=== PATIENT | male | born 1965 | race Caucasian/White ===

== ENCOUNTER 2019-07-06 14:24 | Inpatient (IN) | payer MEDICARE, MEDICAID ==
[~2019-07-06] VITALS: Ht 182.9 cm; Wt 132.7 kg
[2019-07-06] MEDS ORDERED: SODIUM CHLORIDE 0.9% 1,000 ML IV ONE ×2 (14:47)
[2019-07-06 15:34] LABS: Basophils # (auto) 0 10 ^3/uL (0-0.2); Basophils % (auto) 0.5 % (0.0-2.0); Eosinophils # (auto) 0.2 10 ^3/uL (0-0.8); Eosinophils % (auto) 3.9 % (0.0-7.0); Hematocrit 45.1 % (41.0-53.0); Hemoglobin 14.9 g/dL (13.5-17.5); Lymphocytes # (auto) 0.8 10 ^3/uL (0.4-5.4); Lymphocytes % (auto) 17.2 % (10.0-50.0); Mean Corpuscular Hemoglobin 30.9 pg (28.0-32.0); Mean Corpuscular Hgb Conc. 33.1 g/dL (32.0-36.0); Mean Corpuscular Volume 93.3 fL (80.0-100.0); Monocytes # (auto) 0.4 10 ^3/uL (0-1.3); Monocytes % (auto) 9.8 % (0.0-12.0); Neutrophils # (auto) 3.1 10 ^3/uL (1.6-8.6); Neutrophils % (auto) 68.6 % (37.0-80.0); Nucleated Red Blood Cells % 0.2 %; Platelet Count (auto) 161 10^3/uL (140-450); Red Blood Cells 4.84 10^6/uL (4.5-5.90); Red Cell Distribution Width 15.3 % (11.8-14.3); White Blood Cell 4.6 10^3/uL (4.4-10.8)
[2019-07-06 15:48] LABS: INR 1.01 (0.9-1.15); Partial Thromboplastin Time 27.5 sec (23.64-32.05)
[2019-07-06 15:53] LABS: Albumin 3.8 g/dL (3.4-5.0); Anion Gap 6 (5-15); Blood Urea Nitrogen 10 mg/dL (7-18); Carbon Dioxide 27 mmol/L (21-32); Chloride 106 mmol/L (98-107); Glucose 57 mg/dL (74-106); Potassium 3.7 mmol/L (3.5-5.1); Sodium 139 mmol/L (136-145)
[2019-07-06 16:00] LABS: Alanine Aminotransferase 30 U/L (16-61); Alkaline Phosphatase 80 U/L (45-117); Aspartate Aminotransferase 18 U/L (15-37); BUN/Creatinine Ratio 13.5; Bilirubin, Total 0.9 mg/dL (0.2-1.0); GFR African American 142 mL/min; GFR Non-African American 118 mL/min; Total Protein 8.2 g/dL (6.4-8.2)
[2019-07-06] MEDS ORDERED: levoFLOXacin 500MG 100 ML IV ONE (19:45)
[2019-07-06] MEDS ORDERED: TEMAZEPAM 15 MG CAP PO PRN (19:45)
[2019-07-06] MEDS ORDERED: ALBUTEROL SULF 2.5 MG/0.5ML(0.5%) NEB SOLN NEB PRN (19:45)
[2019-07-06] MEDS ORDERED: ACETAMINOPHEN 500 MG TAB PO PRN (19:45)
[2019-07-06] MEDS ORDERED: traMADol HCL 50 MG TAB PO PRN (19:45)
[2019-07-06] MEDS ORDERED: VANCOMYCIN 1GM/250ML 250 ML IV ONE (19:45)
[2019-07-06] MEDS ORDERED: VANCOMYCIN PER PHARMACY 0 MG IV SCH (19:45)
[2019-07-06] MEDS ORDERED: DEXTROSE (50%) 50ML SYRG IV PRN (19:45)
[2019-07-06 19:50] VITALS: BP 151/81
[2019-07-06 21:00] VITALS: BP 155/96
[2019-07-06] MEDS: InsuLIN REG 1unit/0.01ml Soln (100units/ml) SC SCH (22:00)
[2019-07-06] MEDS: FAMOTIDINE 20 MG TAB PO SCH (22:03)
[2019-07-06] MEDS: ACCU-CHEK COMFORT CURVE STRIP VI SCH (22:03)
[2019-07-06] MEDS: MORPHINE SULF INJ 2 MG/ML SYRINGE 1ML IV PRN (22:04)
[2019-07-06] MEDS ORDERED: METF-370 PO (23:31)
[2019-07-06] MEDS ORDERED: GLIP5TAB12 PO (23:31)
[2019-07-06] MEDS ORDERED: OME20GT PO (23:31)
[2019-07-06] MEDS ORDERED: SEMA2INJ SC (23:31)
[2019-07-06] MEDS ORDERED: INSLANTI SC (23:31)
[2019-07-06] MEDS: SODIUM CHLORIDE 0.9% 1,000 ML IV SCH (23:34)
[2019-07-07] MEDS: IPRATROPIUM BROM 0.5 MG/2.5ML INH SOL NEB SCH ×5 (00:20→18:55)
[2019-07-07] MEDS: ALBUTEROL SULF 2.5 MG/0.5ML(0.5%) NEB SOLN NEB SCH ×5 (00:20→18:55)
[2019-07-07] MEDS: PROMETHAZINE HCL 25 MG/ML 1ML IV PRN ×2 (01:07→21:47)
[2019-07-07] MEDS: VANCOMYCIN 1GM/250ML 250 ML IV SCH ×3 (04:42→20:07)
[2019-07-07 05:00] VITALS: BP 142/85
[2019-07-07] MEDS: SODIUM CHLORIDE 0.9% 1,000 ML IV SCH ×2 (05:34→15:34)
[2019-07-07] MEDS: InsuLIN REG 1unit/0.01ml Soln (100units/ml) SC SCH ×4 (07:00→21:59)
[2019-07-07] MEDS: ACCU-CHEK COMFORT CURVE STRIP VI SCH ×4 (07:01→21:55)
[2019-07-07 09:00] VITALS: BP 162/67
[2019-07-07] MEDS ORDERED: levoFLOXacin 500MG 100 ML IV SCH (10:00)
[2019-07-07] MEDS: FAMOTIDINE 20 MG TAB PO SCH ×2 (11:41→21:54)
[2019-07-07 13:00] VITALS: BP 133/82
[2019-07-07] MEDS ORDERED: CEFTRIAXONE SODIUM 2 GM in D5W 5% 50 ML IV ONE (14:45)
[2019-07-07 17:00] VITALS: BP 134/85
[2019-07-07] MEDS: MORPHINE SULF INJ 2 MG/ML SYRINGE 1ML IV PRN (21:49)
[2019-07-07 22:00] VITALS: BP 142/75
[2019-07-08] MEDS: ALBUTEROL SULF 2.5 MG/0.5ML(0.5%) NEB SOLN NEB SCH ×4 (00:42→18:40)
[2019-07-08] MEDS: IPRATROPIUM BROM 0.5 MG/2.5ML INH SOL NEB SCH ×4 (00:42→18:40)
[2019-07-08] MEDS: VANCOMYCIN 1GM/250ML 250 ML IV SCH ×3 (03:52→19:34)
[2019-07-08] MEDS: SODIUM CHLORIDE 0.9% 1,000 ML IV SCH ×3 (04:36→19:35)
[2019-07-08 04:57] VITALS: BP 162/73
[2019-07-08] MEDS: InsuLIN REG 1unit/0.01ml Soln (100units/ml) SC SCH ×4 (06:25→21:26)
[2019-07-08] MEDS: ACCU-CHEK COMFORT CURVE STRIP VI SCH ×4 (06:27→21:28)
[2019-07-08] MEDS: CEFTRIAXONE SODIUM 2 GM in D5W 5% 50 ML IV SCH ×2 (08:25→21:16)
[2019-07-08] MEDS: FAMOTIDINE 20 MG TAB PO SCH (08:26)
[2019-07-08] MEDS: MORPHINE SULF INJ 2 MG/ML SYRINGE 1ML IV PRN ×2 (08:27→21:37)
[2019-07-08] MEDS: PROMETHAZINE HCL 25 MG/ML 1ML IV PRN ×2 (08:27→21:15)
[2019-07-08 08:34] VITALS: BP 165/97
[2019-07-08 12:41] VITALS: BP 144/74
[2019-07-08] MEDS: GABAPENTIN 300 MG CAP PO SCH ×2 (14:21→19:41)
[2019-07-08 17:00] VITALS: BP 155/84
[2019-07-08] MEDS: PANTOPRAZOLE 40 MG/10 ML VIAL INJ IV SCH (19:35)
[2019-07-08] MEDS: SERTRALINE HCL 50 MG TAB PO SCH (19:41)
[2019-07-08] MEDS: buPROPion HCL 100 MG TAB PO SCH (19:41)
[2019-07-08] MEDS: ATORVASTATIN 20 MG TAB PO SCH (19:41)
[2019-07-08] MEDS: INSULIN LANTUS (GLARGINE) 1 /0.01ml (100units/ml) SC SCH (21:27)
[2019-07-08 21:40] VITALS: BP 147/68
[2019-07-09] MEDS: IPRATROPIUM BROM 0.5 MG/2.5ML INH SOL NEB SCH ×4 (00:13→18:28)
[2019-07-09] MEDS: ALBUTEROL SULF 2.5 MG/0.5ML(0.5%) NEB SOLN NEB SCH ×4 (00:13→18:28)
[2019-07-09] MEDS: VANCOMYCIN 1GM/250ML 250 ML IV SCH ×3 (04:30→20:03)
[2019-07-09 04:48] VITALS: BP 153/86
[2019-07-09] MEDS: GABAPENTIN 300 MG CAP PO SCH ×3 (06:49→20:24)
[2019-07-09] MEDS: ACCU-CHEK COMFORT CURVE STRIP VI SCH ×4 (06:50→21:44)
[2019-07-09] MEDS: InsuLIN REG 1unit/0.01ml Soln (100units/ml) SC SCH ×4 (06:51→21:47)
[2019-07-09] MEDS: SODIUM CHLORIDE 0.9% 1,000 ML IV SCH ×3 (06:54→23:42)
[2019-07-09 08:49] VITALS: BP 162/88
[2019-07-09] MEDS: PANTOPRAZOLE 40 MG/10 ML VIAL INJ IV SCH ×2 (09:42→20:25)
[2019-07-09] MEDS: LISINOPRIL 20 MG TAB PO SCH (09:43)
[2019-07-09] MEDS: HCTZ 25 MG TAB PO SCH (09:43)
[2019-07-09 12:48] VITALS: BP 160/86
[2019-07-09] MEDS ORDERED: cloNIDine HCL 0.1 MG TAB PO PRN (13:00)
[2019-07-09 16:44] VITALS: BP 166/94
[2019-07-09 20:04] VITALS: BP 145/82
[2019-07-09] MEDS: buPROPion HCL 100 MG TAB PO SCH (20:24)
[2019-07-09] MEDS: SERTRALINE HCL 50 MG TAB PO SCH (20:24)
[2019-07-09] MEDS: ATORVASTATIN 20 MG TAB PO SCH (20:25)
[2019-07-09] MEDS: MORPHINE SULF INJ 2 MG/ML SYRINGE 1ML IV PRN (20:32)
[2019-07-09] MEDS: PROMETHAZINE HCL 25 MG/ML 1ML IV PRN (21:22)
[2019-07-09] MEDS: CEFTRIAXONE SODIUM 2 GM in D5W 5% 50 ML IV SCH (21:24)
[2019-07-09] MEDS: INSULIN LANTUS (GLARGINE) 1 /0.01ml (100units/ml) SC SCH (21:46)
[2019-07-09 22:00] VITALS: BP_SYST 126; BP_SYST 142; BP_DIAS 73; BP_DIAS 75
[2019-07-10] MEDS: IPRATROPIUM BROM 0.5 MG/2.5ML INH SOL NEB SCH ×5 (00:30→19:12)
[2019-07-10] MEDS: ALBUTEROL SULF 2.5 MG/0.5ML(0.5%) NEB SOLN NEB SCH ×4 (00:30→19:12)
[2019-07-10] MEDS: VANCOMYCIN 1GM/250ML 250 ML IV SCH ×3 (04:00→19:45)
[2019-07-10 05:00] VITALS: BP 137/77
[2019-07-10] MEDS: GABAPENTIN 300 MG CAP PO SCH ×3 (06:00→21:33)
[2019-07-10] MEDS: InsuLIN REG 1unit/0.01ml Soln (100units/ml) SC SCH ×4 (06:31→21:55)
[2019-07-10] MEDS: ACCU-CHEK COMFORT CURVE STRIP VI SCH ×4 (06:32→21:53)
[2019-07-10 09:04] VITALS: BP 158/80
[2019-07-10] MEDS: LISINOPRIL 20 MG TAB PO SCH (09:06)
[2019-07-10] MEDS: PANTOPRAZOLE 40 MG/10 ML VIAL INJ IV SCH ×2 (09:07→21:36)
[2019-07-10] MEDS: HCTZ 25 MG TAB PO SCH (09:07)
[2019-07-10] MEDS: MORPHINE SULF INJ 2 MG/ML SYRINGE 1ML IV PRN ×2 (09:11→21:37)
[2019-07-10 13:00] VITALS: BP 155/88
[2019-07-10] MEDS: SODIUM CHLORIDE 0.9% 1,000 ML IV SCH ×2 (14:13→23:31)
[2019-07-10 16:29] VITALS: BP 147/71
[2019-07-10] MEDS: ATORVASTATIN 20 MG TAB PO SCH (21:33)
[2019-07-10] MEDS: SERTRALINE HCL 50 MG TAB PO SCH (21:34)
[2019-07-10] MEDS: buPROPion HCL 100 MG TAB PO SCH (21:35)
[2019-07-10] MEDS: CEFTRIAXONE SODIUM 2 GM in D5W 5% 50 ML IV SCH (21:38)
[2019-07-10] MEDS: INSULIN LANTUS (GLARGINE) 1 /0.01ml (100units/ml) SC SCH (21:56)
[2019-07-10 22:00] VITALS: BP 139/73
[2019-07-10] MEDS: DAKINS QUARTER STR 0.125% (NaHypochlorite) 473 ML TOPICAL SOL TOP SCH (22:52)
[2019-07-11] VITALS (7 sets, daily range): BP systolic 124–150; BP diastolic 64–83
[2019-07-11] MEDS: IPRATROPIUM BROM 0.5 MG/2.5ML INH SOL NEB SCH ×4 (00:41→18:44)
[2019-07-11] MEDS: ALBUTEROL SULF 2.5 MG/0.5ML(0.5%) NEB SOLN NEB SCH ×4 (00:41→18:44)
[2019-07-11] MEDS: VANCOMYCIN 1GM/250ML 250 ML IV SCH ×3 (03:55→20:19)
[2019-07-11] MEDS: ACCU-CHEK COMFORT CURVE STRIP VI SCH ×4 (06:28→21:24)
[2019-07-11] MEDS: GABAPENTIN 300 MG CAP PO SCH ×3 (06:28→21:22)
[2019-07-11] MEDS: InsuLIN REG 1unit/0.01ml Soln (100units/ml) SC SCH ×4 (06:39→21:31)
[2019-07-11] MEDS: PANTOPRAZOLE 40 MG/10 ML VIAL INJ IV SCH ×2 (10:20→21:40)
[2019-07-11] MEDS: HCTZ 25 MG TAB PO SCH (10:20)
[2019-07-11] MEDS: DAKINS QUARTER STR 0.125% (NaHypochlorite) 473 ML TOPICAL SOL TOP SCH ×2 (10:21→21:32)
[2019-07-11] MEDS: LISINOPRIL 20 MG TAB PO SCH (10:21)
[2019-07-11] MEDS: SODIUM CHLORIDE 0.9% 1,000 ML IV SCH ×2 (10:21→19:34)
[2019-07-11] MEDS: ATORVASTATIN 20 MG TAB PO SCH (21:22)
[2019-07-11] MEDS: buPROPion HCL 100 MG TAB PO SCH (21:23)
[2019-07-11] MEDS: SERTRALINE HCL 50 MG TAB PO SCH (21:30)
[2019-07-11] MEDS: CEFTRIAXONE SODIUM 2 GM in D5W 5% 50 ML IV SCH (21:30)
[2019-07-11] MEDS: INSULIN LANTUS (GLARGINE) 1 /0.01ml (100units/ml) SC SCH (21:32)
[2019-07-12] MEDS: IPRATROPIUM BROM 0.5 MG/2.5ML INH SOL NEB SCH ×4 (00:38→18:22)
[2019-07-12] MEDS: ALBUTEROL SULF 2.5 MG/0.5ML(0.5%) NEB SOLN NEB SCH ×4 (00:38→18:22)
[2019-07-12] MEDS: VANCOMYCIN 1GM/250ML 250 ML IV SCH ×3 (03:28→20:00)
[2019-07-12 04:32] VITALS: BP 145/77
[2019-07-12] MEDS: SODIUM CHLORIDE 0.9% 1,000 ML IV SCH ×2 (05:34→10:43)
[2019-07-12 05:51] LABS: Basophils # (auto) 0 10 ^3/uL (0-0.2); Basophils % (auto) 0.7 % (0.0-2.0); Eosinophils # (auto) 0.3 10 ^3/uL (0-0.8); Eosinophils % (auto) 5.6 % (0.0-7.0); Hematocrit 45.5 % (41.0-53.0); Hemoglobin 15.3 g/dL (13.5-17.5); Lymphocytes # (auto) 1.1 10 ^3/uL (0.4-5.4); Lymphocytes % (auto) 22.3 % (10.0-50.0); Mean Corpuscular Hemoglobin 31.3 pg (28.0-32.0); Mean Corpuscular Hgb Conc. 33.6 g/dL (32.0-36.0); Monocytes # (auto) 0.4 10 ^3/uL (0-1.3); Monocytes % (auto) 9.4 % (0.0-12.0); Neutrophils # (auto) 2.9 10 ^3/uL (1.6-8.6); Nucleated Red Blood Cells % 0.1 %; Platelet Count (auto) 169 10^3/uL (140-450); Red Blood Cells 4.89 10^6/uL (4.5-5.90); Red Cell Distribution Width 15.1 % (11.8-14.3); White Blood Cell 4.7 10^3/uL (4.4-10.8)
[2019-07-12] MEDS: GABAPENTIN 300 MG CAP PO SCH ×3 (06:00→22:00)
[2019-07-12] MEDS: InsuLIN REG 1unit/0.01ml Soln (100units/ml) SC SCH ×4 (06:01→22:00)
[2019-07-12] MEDS: ACCU-CHEK COMFORT CURVE STRIP VI SCH ×4 (06:01→22:00)
[2019-07-12 06:05] LABS: INR 1.01 (0.9-1.15); Partial Thromboplastin Time 28.5 sec (23.64-32.05)
[2019-07-12 06:31] LABS: BUN/Creatinine Ratio 20.9
[2019-07-12] MEDS ORDERED: BUPIVACAINE HCL 50 ML ONE (07:15)
[2019-07-12] MEDS ORDERED: ceFAZolin 1GM/50ML 100 ML IV ONE (07:48)
[2019-07-12] MEDS ORDERED: MIDAZOLAM HCL 1MG/1ML-2 ML VIAL ONE (08:10)
[2019-07-12] MEDS ORDERED: fentaNYL CITRATE 100 MCG/2 ML VL ONE (08:10)
[2019-07-12] MEDS ORDERED: PROPOFOL 10 MG/ML 20 ML IV ONE (08:11)
[2019-07-12] MEDS: LIDOCAINE 1% HCL (LOCAL ANESTH.) INJ 20ML MDV ONE ×2 (08:34→10:39)
[2019-07-12] MEDS ORDERED: ONDANSETRON HCL 4 MG/2 ML VIAL IV PRN (09:15)
[2019-07-12] MEDS ORDERED: hydrALAZINE HCL 20 MG/ML VL IV PRN (09:15)
[2019-07-12] MEDS ORDERED: ePHEDrine SULFATE 50 MG/ML AMP IV PRN (09:15)
[2019-07-12] MEDS ORDERED: fentaNYL CITRATE 100 MCG/2 ML VL IV PRN (09:15)
[2019-07-12] MEDS: DAKINS QUARTER STR 0.125% (NaHypochlorite) 473 ML TOPICAL SOL TOP SCH ×2 (10:00→22:00)
[2019-07-12] MEDS: PANTOPRAZOLE 40 MG/10 ML VIAL INJ IV SCH ×2 (10:36→22:00)
[2019-07-12] MEDS: HCTZ 25 MG TAB PO SCH (10:37)
[2019-07-12] MEDS: LISINOPRIL 20 MG TAB PO SCH (10:37)
[2019-07-12] MEDS: MORPHINE SULF INJ 2 MG/ML SYRINGE 1ML IV PRN (16:15)
[2019-07-12 17:00] VITALS: BP 118/80
[2019-07-12 18:23] VITALS: BP 145/74
[2019-07-12] MEDS: CEFTRIAXONE SODIUM 2 GM in D5W 5% 50 ML IV SCH (21:00)
[2019-07-12 22:00] VITALS: BP 145/74
[2019-07-12] MEDS: SERTRALINE HCL 50 MG TAB PO SCH (22:00)
[2019-07-12] MEDS: buPROPion HCL 100 MG TAB PO SCH (22:00)
[2019-07-12] MEDS: INSULIN LANTUS (GLARGINE) 1 /0.01ml (100units/ml) SC SCH (22:00)
[2019-07-12] MEDS: ATORVASTATIN 20 MG TAB PO SCH (22:00)
[2019-07-13] MEDS: ALBUTEROL SULF 2.5 MG/0.5ML(0.5%) NEB SOLN NEB SCH ×4 (00:12→19:29)
[2019-07-13] MEDS: IPRATROPIUM BROM 0.5 MG/2.5ML INH SOL NEB SCH ×4 (00:12→19:29)
[2019-07-13] MEDS: SODIUM CHLORIDE 0.9% 1,000 ML IV SCH ×3 (01:34→21:34)
[2019-07-13] MEDS: VANCOMYCIN 1GM/250ML 250 ML IV SCH ×3 (04:00→19:58)
[2019-07-13 05:53] VITALS: BP 117/63
[2019-07-13] MEDS: GABAPENTIN 300 MG CAP PO SCH ×3 (06:00→21:06)
[2019-07-13] MEDS: ACCU-CHEK COMFORT CURVE STRIP VI SCH ×4 (07:04→21:28)
[2019-07-13] MEDS: InsuLIN REG 1unit/0.01ml Soln (100units/ml) SC SCH ×4 (07:06→21:27)
[2019-07-13 09:00] VITALS: BP 125/78
[2019-07-13] MEDS: PANTOPRAZOLE 40 MG/10 ML VIAL INJ IV SCH ×2 (09:51→21:04)
[2019-07-13] MEDS: MORPHINE SULF INJ 2 MG/ML SYRINGE 1ML IV PRN ×2 (09:52→19:57)
[2019-07-13] MEDS: LISINOPRIL 20 MG TAB PO SCH (09:53)
[2019-07-13] MEDS: HCTZ 25 MG TAB PO SCH (09:53)
[2019-07-13] MEDS: DAKINS QUARTER STR 0.125% (NaHypochlorite) 473 ML TOPICAL SOL TOP SCH ×2 (12:31→22:40)
[2019-07-13 13:00] VITALS: BP 122/74
[2019-07-13 17:00] VITALS: BP 149/79
[2019-07-13 18:49] VITALS: BP 122/74
[2019-07-13] MEDS: ATORVASTATIN 20 MG TAB PO SCH (21:05)
[2019-07-13] MEDS: CEFTRIAXONE SODIUM 2 GM in D5W 5% 50 ML IV SCH (21:05)
[2019-07-13] MEDS: buPROPion HCL 100 MG TAB PO SCH (21:06)
[2019-07-13] MEDS: SERTRALINE HCL 50 MG TAB PO SCH (21:06)
[2019-07-13] MEDS: INSULIN LANTUS (GLARGINE) 1 /0.01ml (100units/ml) SC SCH (21:27)
[2019-07-13 22:00] VITALS: BP 118/63
[2019-07-14] MEDS: IPRATROPIUM BROM 0.5 MG/2.5ML INH SOL NEB SCH
[2019-07-14] MEDS: ALBUTEROL SULF 2.5 MG/0.5ML(0.5%) NEB SOLN NEB SCH
== END 2019-07-14 | DRG 504 ==
LOC: ER 14:24 → EDBD 14:24 → OVERFLOW 14:25 → WEST WING 20:27
PROVIDERS: ADMIT Internal Medicine; ATTEND Family Medicine
PROC: 0QBP0ZZ Excision of Left Metatarsal, Open Approach (ICD-10-PCS; 2019-07-12)
PROC: 0Y9N0ZZ Drainage of Left Foot, Open Approach (ICD-10-PCS; principal; 2019-07-12 08:15)
DX: T87.44 Infection of amputation stump, left lower extremity (principal); M86.8X7 Other osteomyelitis, ankle and foot; L03.116 Cellulitis of left lower limb; T87.81 Dehiscence of amputation stump; E11.69 Type 2 diabetes mellitus with other specified complication; J44.9 Chronic obstructive pulmonary disease, unspecified; L08.9 Local infection of the skin and subcutaneous tissue, unspecified; F41.9 Anxiety disorder, unspecified; K21.9 Gastro-esophageal reflux disease without esophagitis; E11.42 Type 2 diabetes mellitus with diabetic polyneuropathy; J45.909 Unspecified asthma, uncomplicated; E78.5 Hyperlipidemia, unspecified; E66.01 Morbid (severe) obesity due to excess calories; I10 Essential (primary) hypertension; F32.9 Major depressive disorder, single episode, unspecified; Z90.49 Acquired absence of other specified parts of digestive tract; Z83.3 Family history of diabetes mellitus; Z80.3 Family history of malignant neoplasm of breast; Z79.4 Long term (current) use of insulin; Z79.84 Long term (current) use of oral hypoglycemic drugs; Z79.899 Other long term (current) drug therapy; Z68.39 Body mass index [BMI] 39.0-39.9, adult; Y83.5 Amputation of limb(s) as the cause of abnormal reaction of the patient, or of later complication, without mention of misadventure at the time of the procedure; E11.21 Type 2 diabetes mellitus with diabetic nephropathy; Z81.8 Family history of other mental and behavioral disorders; Z82.49 Family history of ischemic heart disease and other diseases of the circulatory system
CPT/HCPCS: 36415; 71045; 73700; 78315; 80048; 80053; 80202; 82565; 82962; 83036; 83605; 84484; 85025; 85610; 85652; 85730; 87040; 87070; 87075; 87081; 87205; 93306; 93926; 94640; C9113; G0378; J0690; J0696; J1815; J1956; J2001; J2250; J2704; J3490; J7060